=== PATIENT | female | born 1985 | race Caucasian/White ===

== ENCOUNTER 2016-09-11 16:13 | Emergency (ER) | payer OTHER ==
[~2016-09-11 16:13] MED LIST: EZFE 200200 MG PO; MOTRIN600 MG PO; PERCOCET 5/3251 TA1 PO
[2016-09-11 16:52] LABS: BASOPHILS 0.3 % (0-2); EOSINOPHILS 0.4 % (0-7); HEMATOCRIT 35.7 % (36.0-48.0); HEMOGLOBIN 11.1 g/dL (12-16); IMMATURE GRANULOCYTES 0.2 % (0-5); MCH 24.4 pg (26.0-34.0); MCHC 31.1 g/dL (31.0-37.0); MCV 78.5 fL (80.0-100.0); MEAN PLATELET VOLUME 9.8 fL (7.4-10.4); MONOCYTES 5.8 % (2-11); NEUTROPHILS 59.3 % (40-80); RBC 4.55 10x6/uL (4.00-5.40); RDW 18.6 % (11.5-14.5); WBC 9.2 10x3/uL (4.8-10.8)
[2016-09-11 16:59] LABS: PLATELET COUNT 287 10x3/uL (130-400)
== END 2016-09-11 17:50 | disposition home or self-care (01) ==
LOC: D.ER 16:13
PROVIDERS: Emergency Medicine
DX: D50.9 Iron deficiency anemia, unspecified (principal); F17.200 Nicotine dependence, unspecified, uncomplicated

== ENCOUNTER → 2016-09-25 10:12 | Outpatient (CLI) | payer MEDICAID | END | disposition home or self-care (01) | LOC: D.CT 10:12 | DX: R63.4 Abnormal weight loss (principal) ==